=== PATIENT | female | born 1955 | race Caucasian/White ===

== ENCOUNTER 2024-03-07 21:56 | Inpatient (IN) | payer MEDICARE, OTHER, SELFPAY ==
[2024-03-07 18:18] VITALS: BP 126/77
[2024-03-07 19:00] LABS: Urine Albumin 2+ (Neg - Trace); Urine Bilirubin Negative (Negative); Urine Character Slightly Cloudy (Clear); Urine Color Yellow; Urine Glucose Negative (Negative); Urine Ketone 3+ (Negative); Urine Leukocyte Negative (Negative); Urine Nitrite Negative (Negative); Urine Occult Blood 3+ (Negative); Urine Specific Gravity 1.025 (<1.030); Urine Urobilinogen Negative (Neg - 1+)
[2024-03-07 19:03] LABS: % Basophils 0.3 % (0-2); % Immature Granulocytes 1.1 % (0-0.5); % Lymphocytes 7.4 % (20.5-51.1); % Monocytes 3.4 % (1.7-9.3); % Neutrophils 87.8 % (42.2-75.2); Absolute Immature Granulocytes 0.2 10^3/uL (0-0.05); Absolute Lymphocytes 1.1 10^3/uL (1.2-3.4); Absolute Monocytes 0.5 10^3/uL (0.1-0.6); Absolute Neutrophils 13.4 10^3/uL (1.4-6.5); Hematocrit 35.1 % (37.0-47.0); Hemoglobin 12.6 g/dL (12.0-16.0); Mean Corp Hgb Conc. 35.9 g/dL (33.0-37.0); Mean Corpuscular Hgb 30.3 pg (27.0-31.0); Mean Corpuscular Volume 84.4 fL (81.0-99.0); Mean Platelet Volume 9.3 fL (7.4-10.4); Nucleated Red Blood Cells % 0 %; Platelet Count 264 10^3/uL (130-400); Red Blood Cell Count 4.16 10^6/uL (4.20-5.40); Red Cell Dist. Width 11.8 % (11.5-14.5); White Blood Cell Count 15.3 10^3/uL (4.8-10.8)
[2024-03-07 19:11] LABS: Lactic Acid 1.1 mmol/L (0.7-2.0)
[2024-03-07 19:12] LABS: ALT (SGPT) 17 U/L (0-35); AST (SGOT) 21 U/L (14-36); Albumin 4.2 g/dl (3.5-5.0); Alkaline Phosphatase 81 U/L (38-126); Blood Urea Nitrogen 7 mg/dl (7-17); Calcium 8.9 mg/dl (8.4-10.2); Carbon Dioxide 25 mmol/L (22-30); Chloride 91 mmol/L (98-107); Glucose 135 mg/dl (70-99); Potassium 3.8 mmol/L (3.5-5.1); Sodium 127 mmol/L (135-145); Total Bilirubin 0.6 mg/dl (0.2-1.3); eGFR > 60.00
[2024-03-07 19:16] LABS: Urine Bacteria Few (Negative); Urine Red Blood Cell 21-25 /HPF (0-2)
[2024-03-07] MEDS: NSS 1000 IV ×2 (19:43→23:51)
[2024-03-07] MEDS: ZOFRAN 4 MG IV (19:43)
[2024-03-07] MEDS: TORADOL 15 MG IV (19:43)
[2024-03-07 20:50] VITALS: BP 111/59
[2024-03-07 21:00] VITALS: BP 105/57
--- NOTE | 2024-03-07 21:05 | ED.GENMED ---
History of Present Illness
General
Chief Complaint: Flank Pain
Source: patient
Exam Limitations: none
Time Seen by Provider: 03/07/24 18:44
Nursing documentation reviewed up to this point in time: agreed with
History of Present Illness
History of Present Illness:
68-year-old female presenting to the emergency department today with concerns of right sided sharp discomfort today and also symptoms of potential UTI over the past week or so. On arrival here febrile tachycardic.
Past History
Past History
ED Past Medical History: None
ED Past Surgical History: None
Review of Systems
Review of Systems
Allergies reviewed?: Yes
All Other Systems: ROS reviewed and negative except as documented in HPI and ROS
Phy Exam
Physical Exam
Physical Exam:
GENERAL: Alert , in no apparent distress
EYE: pupils equal and reactive
NECK: Supple, no significant adenopathy.
ENT: o/p clr, mmm.
CARDIAC: Regular rate and rhythm .
LUNGS: Clear breath sounds bilaterally, no acute respiratory distress, no wheezes/rales/rhonchi
ABDOMEN: Soft, without focal tenderness, no r/g, no cvat
NEUROLOGICAL: Alert and oriented, no focal neuro deficits
SKIN: Warm and dry, skin intact.
MUSCULOSKELETAL: No edema, well perfused.
PSYCH: Normal and appropriate interaction.
Course
Orders/Labs/Results
Orders:
Orders
03/07/24 18:28
Complete Blood Count/With Diff Urgent
Comprehensive Metabolic Panel Urgent
Lactic Acid Urgent
03/07/24 18:31
Urinalysis Reflex To Culture Urgent
Date Specimen was Collected: 03/07/24
Time Specimen was Collected: 18:21
Urine Microscopic Reflex Cult Urgent
Urine Culture Urgent
MICHAEL Source: U
Specimen Description:
Date Specimen was Collected: 03/07/24
Time Specimen was Collected: 18:21
03/07/24 19:32
CT Abd/pel Without Iv Or Oral Urgent
Comment:
Reason For Exam: right flank pain uti
0.9% Sodium Chloride 1000 ml [Nss] 1,000 ml IV BOLUS
Ketorolac [Toradol] 15 mg IV NOW STA
Ondansetron Injectable [Zofran] 4 mg IV NOW STA
03/07/24 21:05
CefTRIAXone [Rocephin] 2,000 mg IV NOW STA
Abnormal Lab Results
03/07/24 03/07/24
18:28 18:31
WBC 15.3 H 10^3/uL
(4.8-10.8)
RBC 4.16 L 10^6/uL
(4.20-5.40)
Hct 35.1 L %
(37.0-47.0)
Abs Immat Gran (auto) 0.2 H 10^3/uL
(0-0.05)
Absolute Neuts (auto) 13.4 H 10^3/uL
(1.4-6.5)
Absolute Lymphs (auto) 1.1 L 10^3/uL
(1.2-3.4)
Immature Gran % 1.1 H %
(0-0.5)
Neutrophils % 87.8 H %
(42.2-75.2)
Lymphocytes % 7.4 L %
(20.5-51.1)
Sodium 127 L mmol/L
(135-145)
Chloride 91 L mmol/L
(98-107)
Creatinine 0.5 L mg/dL
(0.6-1.0)
Glucose 135 H mg/dl
(70-99)
Urine Ketones 3+ A
(Negative)
Ur Occult Blood Reflex 3+ A
(Negative)
Urine RBC 21-25 A /HPF
(0-2)
Urine WBC (Reflex) 11-15 A /HPF
(0-5)
Urine Bacteria (Reflex) Few A
(Negative)
Urine Albumin (Reflex) 2+ A
(Neg - Trace)
03/07/24 18:28
03/07/24 18:28
Vital Signs
Initial and Last Documented VS:
Initial Vital Signs
Temp Pulse Resp BP Pulse Ox
101.1 F H 117 18 126/77 98
03/07/24 18:18 03/07/24 18:18 03/07/24 18:18 03/07/24 18:18 03/07/24 18:18
Last Documented Vital Signs
Temp Pulse Resp BP Pulse Ox
98.7 F 117 16 126/77 95
03/07/24 20:00 03/07/24 18:18 03/07/24 20:00 03/07/24 18:18 03/07/24 20:45
MDM/Problems Addressed
MDM/Problems Addressed:
68-year-old female presenting to the emergency department today with concerns of sharp pain to the right flank. Worsened today intermittently over few days. Has had symptoms of UTI over the past week or so has been taking Macrobid without relief.
Tachycardic and febrile on arrival. This improved after receiving Toradol. Patient now very comfortable after medication. Does a white count with left shift urinalysis potentially consistent with infection also hyponatremic. Case discussed with
urology would like to place a stent with concerns for infected stone. Started on IV antibiotics otherwise admitted.
*Critical Care Note
Total Time (30-74mins, 75-104mins- exclusive of procedures): Not Applicable
ED Attending Note
-
Portions of this chart may have been created with voice recognition software.� Occasional wrong word or��sound alike� substitutions may have occurred due to the inherent limitations of voice recognition software.
Discharge Plan
Departure
Patient Disposition: Admit
Date of Disposition: 03/07/24
Time of Disposition: 21:10
Admit to: Med/Surg
Admit to doctor: Miguel A
Presentation/result/management discussed w/ accepting MD/DO: Hospitalist
Patient with high blood pressure during this ER visit?: No
Condition: Fair
Covid-19: Not Applicable
Discharge Problem:
Ureteral calculus, right, Urinary tract infection, Acute hyponatremia
Prescriptions:
No Action
cephalexin 500 mg capsule
500 mg PO BID Qty: 14 0RF
hydrocodone-acetaminophen 5-325 mg tablet
1 tab PO Q4H PRN (Reason: pain) Qty: 14 0RF
Referrals:
Corrina Anaya CRNP [Family Provider] -
Interventions
Interventions:
*Risk Screen - Suicide Last Done: 03/07/24 18:18
*General Assessment Last Done: 03/07/24 18:46
*Neglect/Abuse Screening Last Done: 03/07/24 18:18
ED- Fall Risk Assessment Last Done: 03/07/24 18:46
YY-Mtrlex-Aqkloslvhx Assessment Last Done: 03/07/24 18:46
ED-Female Genitourinary Assessment Last Done: 03/07/24 18:46
Discharge Date and Time
Print Language: WELSH
--- NOTE | 2024-03-07 21:11 | HPS.HSE ---
Addendum entered and electronically signed by Darnell Grady DO 03/07/24 22:18:
Patient seen and examined independently. Agree with findings and plan as set forth by ERINN Tovar.
Patient is a 68y F with PMH significant for kidney stones who presents to ED complaining of R flank pain, dysuria and frequency. Had initial LEFT flank pain about 2 weeks ago which resolved. Current symptoms started last PM. Prior history of
kidney stones / previous ESWL. No prior cysto / stent procedures. No other chronic health issues.
Ass:
Right Ureterolithiasis
UTI secondary to the above
Sepsis secondary to the above
Hyponatremia
Plan:
Admit for further evaluation and treatment.
Being taken to the OR this evening for cysto / stent placement.
IV abx, IVFs, tamsulosin, etc.
Adjust abx as needed based on culture data.
Follow for clinical improvement.
Follow for improvement in Na levels with IVFs and pain control.
Original Note:
Family Physician
-
Family Physician: Corrina Anaya
Chief Complaint
-
right flank pain
History of Present Illness
68-year-old female with PMH for Kidney stones presenting to the emergency department today with concerns of right sided sharp flank pain since last night. two week ago, she noticed left flank pain, which resolved over night. patient stated burning
with urination, dysuria an frequency since Saturday. she was started on Macrobid on Saturday. she felt fine the first day. the symptoms persisted from the second day on abx. last night she started having right flank pain, associated with nausea and
vomiting. denied diarrhea. denied fever, she was having GREEN. denied fever, chills, congestion, cough.
positive UA. CT abdomen pelvis with Punctate 2 mm calculus at the right ureterovesical junction with associated mild right hydroureteronephrosis.patient received IV ceftriaxone, Toradol, Zofran and normal Saline in ER. admitting for further
management.
Medical History
Past Medical History
Past Medical History: Reports None and Other
Additional Past Medical History:
TBI
Past Surgical History: Reports Other
Additional Past Surgical History:
foot surgery
bunionectomy
back surgery
Social History
Tobacco: Former Smoker
Alcohol: Occasional
Drug: None
Living: With Family
Family History
Family History: Not pertinent
Allergies / Home Medications
Allergies reflects when Allergies were last updated in [facility].
Home Medications with original date entered in [facility]
Allergy/Medication List:
Allergies
Allergy/AdvReac Type Severity Reaction Status Date / Time
No Known Allergies Allergy Verified 03/07/24 18:21
Home Medications
cephalexin 500 mg capsule 500 mg PO BID #14 caps 05/16/22
hydrocodone 5 mg-acetaminophen 325 mg tablet 1 tab PO Q4H PRN pain #14 tabs 05/16/22
Review of Systems
-
Constitutional: Reports No Symptoms
EENT: Reports No Symptoms
Respiratory: Reports No Symptoms
Cardiac: Reports No Symptoms
Abdomen/GI: Reports No Symptoms
: Reports Dysuria, Frequency, Flank Pain and Urgency
Musculoskeletal: Reports No Symptoms
Skin: Reports No Symptoms
Neurological: Reports No Symptoms
Endocrine: Reports No Symptoms
Hematologic/Lymphatic: Reports No Symptoms
Psych: Reports No Symptoms
Physical Exam
Vital Signs
Vital Signs
Temp Pulse Resp BP Pulse Ox
98.7 F 117 16 126/77 95
03/07/24 20:00 03/07/24 18:18 03/07/24 20:00 03/07/24 18:18 03/07/24 20:45
Physical Exam
General: Well Developed, Well Nourished and No Apparent Distress
HEENT: NormoCephalic, Moist mucous membranes and Atraumatic
Respiratory: Clear
Cardiac: S1/S2 and Regular Rhythm; No Murmur or Rub
GI: Soft, Non Tender, Non Distended and Normal Bowel Sounds; No Organomegaly
Rectal: Deferred by Provider
Musculoskeletal: No Clubbing, No Cyanosis and No Edema
Skin: No Rash
Neuro: AO x 3 and Nonfocal/grossly intact
Psych: Calm
Laboratory Results
-
03/07/24 18:28
03/07/24 18:
Laboratory Results
Lactic Acid 1.1 mmol/L (0.7-2.0) 03/07/24 18:
Total Bilirubin 0.6 mg/dl (0.2-1.3) 03/07/24 18:
AST 21 U/L (14-36) 03/07/24 18:
ALT 17 U/L (0-35) 03/07/24 18:
Alkaline Phosphatase 81 U/L (38-126) 03/07/24 18:28
Data Reviewed
-
CT Scan: Report Reviewed by me
Lab Data: Labs Reviewed by me
Impression/Plan
-
#sepsis secondary to right calculus at the right ureterovesical junction associated with hydroureteronephrosis.
-sepsis as evident by wbc 15.3,tachycardia
-CT abdomen pelvis with Punctate 2 mm calculus at the right ureterovesical junction with associated mild right hydroureteronephrosis.
-ceftriaxone continued
-oxy, Dilaudid prn for pain
-will keep patient NPO
-fluids continued for hydration
-strain urine
#hyponatremia likely hypovolemic
-na 127
-fluids continued
-monitor BMP in am
#DVT prophylaxis
-scd
#CODE status
-full code
[2024-03-07] MEDS: ROCEPHIN 2000 MG IV (21:45)
--- NOTE | 2024-03-07 22:10 | CONS.URO ---
Consultation
-
Performing Provider: Peffer
Reason for Consultation: sepsis, R ureteral stone
Medical History
History of Present Illness
68F with remote history of stones and kidney stone procedures, none for many years
History of renal abscesses in the past
Had UTI symptoms earlier this week and was put on antibiotic
Symptoms did not improve and she developed worsening pain and fever, febrile on admission to [facility]
CT showed 2mm R distal ureteral stone with mild hydronephrosis, L renal simple cyst
Leukocytosis on labs
Past Medical History
Past Medical History: Other (Kidney stones)
Past Surgical History: Urological (lithotripsy) and Other (foot surgery bunionectomy back surgery)
Social History
Tobacco: Former Smoker
Alcohol: None
Drug: None
Family History
Family History: Reviewed & Not Pertinent
Allergies/Home Medications
Allergies
Allergy/AdvReac Type Severity Reaction Status Date / Time
No Known Allergies Allergy Verified 03/07/24 18:21
Physical Exam
Vital Signs
Vital Signs
Temp Pulse Resp BP Pulse Ox
98.7 F 117 16 105/57 95
03/07/24 20:00 03/07/24 18:18 03/07/24 20:00 03/07/24 21:00 03/07/24 21:30
Lab / Testing Results
Laboratory Results
03/07/24 18:28
03/07/24 18:28
Physical Exam
General: Well Developed, Well Nourished and Pain
Respiratory: Clear and Non Labored Respirations
GI: Soft and Non Tender
Neuro: AO x 3
Psych: Calm and Intact Judgement
Assessment / Plan
-
68F, remote history of kidney stones and stone procedures with sepsis and 2mm R distal ureteral stone
Febrile despite several days of antibiotics for suspected UTI
- IV antibiotics and IVF
- OR for cystoscopy, R ureteral stent. Possible R ureteroscopy and stone removal if it does not impede prompt renal decompression
Data Reviewed
-
CT Scan: Image personally visualized and interpreted
Lab Data: Labs Reviewed
--- NOTE | 2024-03-07 22:49 | W.IMMPOSTOP ---
Surgical Immed Post Op Note
-
Primary Surgeon: Peffer
Assisting Surgeon: -
Pre-op Diagnosis: Sepsis, R ureteral stone
Post-op Diagnosis: same
Procedure Performed: Cystoscopy, R ureteroscopy, R ureteral stent placement
Anesthesia Type: general
Specimen / Cultures: none
Estimated Blood Loss: none
Complications: none
Operative Findings: no stone encountered
purulent urine within upper tract
cystitis in bladder
stent on string in good position
[2024-03-07 23:30] VITALS: BP 101/57; BP 105/57
[2024-03-07 23:45] VITALS: BP 105/54
[2024-03-08] VITALS (9 sets, daily range): BP systolic 99–116; BP diastolic 46–70; BMI 21.3
--- NOTE | 2024-03-08 02:40 | PTCARENOTE ---
Pt received from PACU in bed. AAOx3, drowsy but arousable to voice. Telemetry = SR. Oriented to surroundings and plan of care discussed. Admission and assessment completed. Assist x1 --> BR, voided 450 mL bloody/cloudy urine. Urine strained,
no particles observed. #20 LAC w/NSS at 80 mL/hr, no-no placed. Call sanchez within reach.
[2024-03-08 06:21] LABS: Hematocrit 35.4 % (37.0-47.0); Hemoglobin 12.3 g/dL (12.0-16.0); Mean Corp Hgb Conc. 34.7 g/dL (33.0-37.0); Mean Corpuscular Hgb 30.2 pg (27.0-31.0); Mean Platelet Volume 9.5 fL (7.4-10.4); Platelet Count 255 10^3/uL (130-400); Red Blood Cell Count 4.07 10^6/uL (4.20-5.40); Red Cell Dist. Width 11.8 % (11.5-14.5); White Blood Cell Count 16.1 10^3/uL (4.8-10.8)
[2024-03-08 06:50] LABS: Blood Urea Nitrogen 8 mg/dl (7-17); Calcium 8.4 mg/dl (8.4-10.2); Carbon Dioxide 24 mmol/L (22-30); Chloride 104 mmol/L (98-107); Estimated Creatinine Clearance 74 ml/min; Glucose 140 mg/dl (70-99); Potassium 4.3 mmol/L (3.5-5.1); Sodium 138 mmol/L (135-145); eGFR > 60.00
--- NOTE | 2024-03-08 07:19 | W.PN.HOSP.TC ---
Today's Communication/Plan
-
see plan
Assessment / Plan
Assessment / Plan
Gen: NAD, AAOx3.
Eyes: EOMI, PERRLA, no scleral icterus.
Neck: supple.
CV: RRR, +S1/S2, no m/r/g.
Resp: CTAB, no rales, wheezes, or rhonchi.
Abd: +BS, soft, NT, ND
Skin: No rashes.
Neuro: CN 2-12 intact, non-focal.
Psych: Normal mood and affect.
CT A/P: Punctate 2 mm calculus at the right ureterovesical junction with associated mild right hydroureteronephrosis.
Sepsis due to acute UTI due to R ureterolithiasis:
-s/p cystoscopy, R ureteroscopy, R ureteral stent placement on admission
-cont Rocephin/IVFs
-follow UCx
Hyponatremia, resolved
FULL/Lovenox
Anticipated Discharge: Within 24 hours
Subjective/Interval History
-
Date of Service: March 08, 2024
Right flank pain improved but has not resolved.
Objective Data
-
Labs:
Laboratory Results
03/08/24
05:53
WBC 16.1 H
Hgb 12.3
Hct 35.4 L
Plt Count 255
Sodium 138 D
Potassium 4.3
Chloride 104
Carbon Dioxide 24
BUN 8
Creatinine 0.5 L
Glucose 140 H
Calcium 8.4
Vital Signs:
Vital Signs
Temp Pulse Resp BP Pulse Ox
97.8 F 75 16 115/59 98
03/08/24 03:15 03/08/24 03:15 03/08/24 03:15 03/08/24 03:15 03/08/24 03:15
I&O
03/07/24 03/08/24 03/09/24
06:59 06:59 06:59
Intake Total 530 / 530
Output Total 1100 / 1100
Balance -570 / -570
[2024-03-08] MEDS: FLOMAX 0.4 MG PO (08:03)
[2024-03-08] MEDS: TYLENOL 650 MG PO ×2 (08:03→17:24)
[2024-03-08] MEDS: MIRALAX 17 GRAMS PO (08:11)
--- NOTE | 2024-03-08 11:06 | W.PN.URO.CBU ---
Today's Communication / Plan
-
Continue antibiotics
Cultures pending
Assessment / Plan
-
68F, remote history of kidney stones and stone procedures with sepsis and 2mm R distal ureteral stone
Febrile despite several days of antibiotics for suspected UTI
s/p OR 03/07 for R ureteroscopy showing no stone present (likely passed), ureteral stent placement
- Continue abx pending cultures
- Stent on string placed due to minimal ureteral edema, plan for removal on or Sat prior to her mother's on
- Outpatient follow up for stone prevention discussion
Diagnosis
-
Date of Service: March 08, 2024
-
Patient Diagnosis:
Sepsis
R ureteral stone
Post Op Day: s/p R ureteroscopy, R ureteral stent placement 03/07
Subjective
-
feeling well
some pain with voiding from stent
Objective
-
Vital Signs
Temp Pulse Resp BP Pulse Ox
98.1 F 90 18 114/62 98
03/08/24 07:19 03/08/24 07:19 03/08/24 07:19 03/08/24 07:19 03/08/24 07:19
Intake and Output
03/07/24 03/08/24 03/09/24
06:59 06:59 06:59
Intake Total 530 / 530
Output Total 1100 / 1100
Balance -570 / -570
Intake:
IV fluids (Total) 530 / 530
nss 50 / 50
Output:
Urine, Voided 1100 / 1100
Laboratory Results
03/08/24 05:53
03/08/24 05:53
Physical Exam
-
General - well developed, well nourished, no acute distress
Chest - clear
Abdomen - soft, non-tender
--- NOTE | 2024-03-08 11:19 | CM ---
Reviewed the chart notes and spoke with the patient at the bedside. The patient is residing in a friends four story home with two steps to enter. The patient reports no VN/SNF/DME. The patient confirmed her pharmacy of choice while in this area
is the [facility]. CM continues to be available to patient/family and is monitoring medical plan for needs at discharge.
Plan: Discharge to home when medically stable. No needs anticipated at this time.
[2024-03-08] MEDS: NSS 1000 IV (12:58)
[2024-03-08] MEDS: LOVENOX 40 MG SC (17:17)
--- NOTE | 2024-03-08 17:29 | PTCARENOTE ---
Pt c/o increasing R flank pain and urethral burning w/ urination. Also started having aches/chills/GREEN. Temp re-checked and is 99.5. Pt resistant to taking medication but agreeable to taking tylenol at this time. Urology made aware via TT.
[2024-03-08] MEDS: TORADOL 15 MG IV (19:57)
[2024-03-08] MEDS: ZOFRAN 4 MG IV (19:57)
[2024-03-08] MEDS: ROCEPHIN 1000 MG IV (21:08)
[2024-03-08] MEDS: STERILE WATER FOR INJECTION 10 ML IV (21:08)
[2024-03-08] MEDS: Pyridium 200 MG PO (21:09)
[2024-03-09] MEDS: NSS 1000 IV (00:51)
[2024-03-09] MEDS: TORADOL 15 MG IV ×3 (04:32→17:13)
[2024-03-09] MEDS: Pyridium 200 MG PO ×4 (04:32→23:39)
[2024-03-09 06:42] LABS: Hematocrit 32.2 % (37.0-47.0); Hemoglobin 10.9 g/dL (12.0-16.0); Mean Corp Hgb Conc. 33.9 g/dL (33.0-37.0); Mean Corpuscular Hgb 29.9 pg (27.0-31.0); Mean Corpuscular Volume 88.5 fL (81.0-99.0); Platelet Count 234 10^3/uL (130-400); Red Blood Cell Count 3.64 10^6/uL (4.20-5.40); White Blood Cell Count 9.9 10^3/uL (4.8-10.8)
[2024-03-09 06:45] LABS: COVID-19 Antigen Negative (Negative)
[2024-03-09 07:04] LABS: Blood Urea Nitrogen 6 mg/dl (7-17); Calcium 7.8 mg/dl (8.4-10.2); Carbon Dioxide 27 mmol/L (22-30); Chloride 103 mmol/L (98-107); Estimated Creatinine Clearance 74 ml/min; Glucose 102 mg/dl (70-99); Potassium 3.8 mmol/L (3.5-5.1); Sodium 137 mmol/L (135-145); eGFR > 60.00
--- NOTE | 2024-03-09 07:06 | PTCARENOTE ---
Pt with c/o of overall not feeling well. Intermittent headaches, chest heaviness, sore throat. Verbalizes concern for covid. [employer]IE[employer] MAN covering house contacted, electronic orders received to swab for influenza and covid. Swabs sent and resulted,
negative.
[2024-03-09] MEDS: FLOMAX 0.4 MG PO (07:37)
[2024-03-09] MEDS: TYLENOL 650 MG PO ×2 (07:37→15:43)
--- NOTE | 2024-03-09 08:25 | W.PN.URO.CBU ---
Today's Communication / Plan
-
Continue antibiotics
Will plan for stent on string removal tomorrow AM
Assessment / Plan
-
68F, remote history of kidney stones and stone procedures with sepsis and 2mm R distal ureteral stone
Febrile despite several days of antibiotics for suspected UTI
s/p OR 03/07 for R ureteroscopy showing no stone present (likely passed), ureteral stent placement
- Continue abx pending cultures
- Stent on string placed due to minimal ureteral edema, plan for removal on or Sat prior to her mother's on
- Outpatient follow up for stone prevention discussion
Diagnosis
-
Date of Service: March 09, 2024
-
Patient Diagnosis:
Sepsis
R ureteral stone
Post Op Day: s/p R ureteroscopy, R ureteral stent placement 03/07
Subjective
-
feeling chills/fevers yesterday
fatigued today
Objective
-
Vital Signs
Temp Pulse Resp BP Pulse Ox
98.8 F 91 18 105/60 95
03/08/24 23:25 03/08/24 23:25 03/08/24 23:25 03/08/24 23:25 03/08/24 23:25
Intake and Output
03/08/24 03/09/24 03/10/24
06:59 06:59 06:59
Intake Total 530 / 530 1200 / 1200
Output Total 1100 / 1100 1700 / 1700
Balance -570 / -570 -500 / -500
Intake:
Oral fluids 1200 / 1200
IV fluids (Total) 530 / 530
nss 50 / 50
Output:
Urine, Voided 1100 / 1100 1700 / 1700
Other:
Number of approximated SMALL 1
amounts of urine
Number of approximated MODERATE 4
amounts of urine
Laboratory Results
03/09/24 05:09
03/09/24 05:09
Physical Exam
-
General - well developed, well nourished, no acute distress
Chest - clear
Abdomen - soft, non-tender
[2024-03-09 09:00] VITALS: BP 103/54
[2024-03-09 15:08] VITALS: BP 112/64
--- NOTE | 2024-03-09 15:54 | CM ---
Chart reviewed. Met with pt
For procedure tomorrow
Plan - anticipate home no needs when medically ready
--- NOTE | 2024-03-09 16:46 | W.PN.HOSP.TC ---
Today's Communication/Plan
-
Discharge plans per Urology
Assessment / Plan
Assessment / Plan
68-year-old female with right flank pain
CT A/P: Punctate 2 mm calculus at the right ureterovesical junction with associated mild right hydroureteronephrosis.
CVS: S1-S2 normal
Chest: CTA B/L
Abdomen: Soft, NT / Bowel sounds present
Extremities: No edema, normal pulses
#Sepsis due to acute UTI due to R ureterolithiasis:
-s/p cystoscopy, R ureteroscopy, R ureteral stent placement on admission-no stone-probably passed
-cont Rocephin with leukocytosis
-follow UCx-sparse growth
-Plan for stent on string removal in the morning
-Leukocytosis better
-Pyridium for Dysuria
#Hyponatremia, resolved
# Migraines
# Traumatic brain injury
# Sleep apnea-uses mouthguard
# Hearing impairment
# PTSD
#FULL
#DVT Prophylaxis- SC Lovenox
D/W RN
Anticipated Discharge: Within 24 hours
Subjective/Interval History
-
Date of Service: March 09, 2024
Objective Data
-
Labs:
Laboratory Results
03/09/24
05:09
WBC 9.9
Hgb 10.9 L
Hct 32.2 L
Plt Count 234
Sodium 137
Potassium 3.8
Chloride 103
Carbon Dioxide 27
BUN 6 L
Creatinine 0.5 L
Glucose 102 H
Calcium 7.8 L
Vital Signs:
Vital Signs
Temp Pulse Resp BP Pulse Ox
99.6 F 96 16 112/64 98
03/09/24 15:08 03/09/24 15:08 03/09/24 15:08 03/09/24 15:08 03/09/24 15:08
I&O
03/08/24 03/09/24 03/10/24
06:59 06:59 06:59
Intake Total 530 / 530 1200 / 1200
Output Total 1100 / 1100 1700 / 1700 725 / 725
Balance -570 / -570 -500 / -500 -725 / -725
[2024-03-09] MEDS: LOVENOX 40 MG SC (17:13)
--- NOTE | 2024-03-09 18:25 | PTCARENOTE ---
Pt w/ intermittent fevers/chills throughout the day relieved w/ tylenol/toradol. Also continues to have dysuria relived by pyridium. Pt alert/oriented/pleasant. Motivated to have stent removed tomorrow morning and hopefully be discharged.
[2024-03-09] MEDS: ROCEPHIN 1000 MG IV (21:24)
[2024-03-09] MEDS: STERILE WATER FOR INJECTION 10 ML IV (21:24)
[2024-03-09 23:11] VITALS: BP 93/56
[2024-03-10] VITALS (8 sets, daily range): BP systolic 98–134; BP diastolic 60–88
[2024-03-10] MEDS: Pyridium 200 MG PO (05:56)
[2024-03-10 07:23] LABS: Hematocrit 33.9 % (37.0-47.0); Hemoglobin 11.7 g/dL (12.0-16.0); Mean Corp Hgb Conc. 34.5 g/dL (33.0-37.0); Mean Corpuscular Hgb 30.4 pg (27.0-31.0); Mean Corpuscular Volume 88.1 fL (81.0-99.0); Platelet Count 243 10^3/uL (130-400); Red Blood Cell Count 3.85 10^6/uL (4.20-5.40); Red Cell Dist. Width 12.2 % (11.5-14.5); White Blood Cell Count 9.6 10^3/uL (4.8-10.8)
[2024-03-10] MEDS: FLOMAX 0.4 MG PO (07:37)
[2024-03-10 07:40] LABS: Blood Urea Nitrogen 5 mg/dl (7-17); Calcium 7.7 mg/dl (8.4-10.2); Carbon Dioxide 26 mmol/L (22-30); Chloride 102 mmol/L (98-107); Estimated Creatinine Clearance 74 ml/min; Glucose 88 mg/dl (70-99); Sodium 138 mmol/L (135-145); eGFR > 60.00
[2024-03-10] MEDS: TYLENOL 650 MG PO ×2 (07:47→20:39)
[2024-03-10] MEDS: TORADOL 15 MG IV ×2 (07:47→17:32)
[2024-03-10] MEDS: MIRALAX 17 GRAMS PO (07:47)
[2024-03-10 08:31] LABS: Potassium 3.7 mmol/L (3.5-5.1)
--- NOTE | 2024-03-10 09:01 | W.PN.URO.CBU ---
Today's Communication / Plan
-
CT today
stent removed
Continue antibiotic
Assessment / Plan
-
68F, remote history of kidney stones and stone procedures with sepsis and 2mm R distal ureteral stone
Febrile despite several days of antibiotics for suspected UTI
s/p OR 03/07 for R ureteroscopy showing no stone present (likely passed), ureteral stent placement
- Continue abx pending cultures - scant growth
- Given persistent fever today will order CT A/P w/wo to evaluate for renal abscess - pt has prior history of renal abscess
- Stent on string placed due to minimal ureteral edema, removed this AM 03/10
- Outpatient follow up for stone prevention discussion
Diagnosis
-
Date of Service: March 10, 2024
-
Patient Diagnosis:
Sepsis
R ureteral stone
Post Op Day: s/p R ureteroscopy, R ureteral stent placement 03/07
Subjective
-
feeling better today
still spiking fever this AM
Objective
-
Vital Signs
Temp Pulse Resp BP Pulse Ox
98.2 F 89 18 93/56 94
03/09/24 23:11 03/09/24 23:11 03/09/24 23:11 03/09/24 23:11 03/09/24 23:11
Intake and Output
03/09/24 03/10/24 03/11/24
06:59 06:59 06:59
Intake Total 1200 / 1200 1520 / 1520
Output Total 1700 / 1700 2149 / 2149
Balance -500 / -500 -630 / -630
Intake:
Oral fluids 1200 / 1200 1520 / 1520
Output:
Urine, Voided 1700 / 1700 2149 / 2149
Other:
Number of approximated SMALL 1
amounts of urine
Number of approximated MODERATE 4
amounts of urine
Laboratory Results
03/10/24 05:05
03/10/24 05:05
Physical Exam
-
General - well developed, well nourished, no acute distress
Chest - clear bilaterally
Abdomen - soft, non-tender
Genitalia - ureteral stent on string
--- NOTE | 2024-03-10 10:21 | CM ---
Patient not available in room as she is having CT A/P
Continues with antibiotic, stent removed
CM to follow - currently no anticipated needs
PLAN: anticipate home no needs when medically ready
--- NOTE | 2024-03-10 12:08 | W.PN.UPDATE ---
Update Note
Progress Note Update
CT shows R renal abscess
Discussed with patient
Consulted IR for percutaneous drainage
NPO
Abscess culture ordered
--- NOTE | 2024-03-10 12:48 | W.PN.HOSP.TC ---
Today's Communication/Plan
-
Change AB to Zosyn
-Blood CX prior to Starting Zosyn.
-ID eval
-IR Consult for PC drainage with abscess Cx
-Check COVID and FLU
Assessment / Plan
Assessment / Plan
68-year-old female with right flank pain
CT A/P: Punctate 2 mm calculus at the right ureterovesical junction with associated mild right hydroureteronephrosis.
CVS: S1-S2 normal
Chest: CTA B/L
Abdomen: Soft, NT / Bowel sounds present
Extremities: No edema, normal pulses
CT A/P-There is a 3.6 cm complex right renal mass with 8 mm enhancing wall and low-density center which measures higher than cyst attenuation. This mass is most consistent with abscess. Complex cyst is included in the differential diagnosis
#Sepsis due to acute UTI due to R ureterolithiasis:
-s/p cystoscopy, R ureteroscopy, R ureteral stent placement on admission-no stone-probably passed
-On going fevers
-Repeat Ct with 3 cm collection
-Change AB to Zosyn
-Blood CX prior to Starting Zosyn.
-follow UCx-sparse growth
-Leukocytosis better
-Pyridium for Dysuria
-Stent with string removed today
-ID eval
-IR Consult for PC drainage with abscess Cx
Also check COVID and INfluenza
Cough- Mucinex and Tsslon
#Hyponatremia, resolved
# Migraines
# Traumatic brain injury
# Sleep apnea-uses mouthguard
# Hearing impairment
# PTSD
#FULL
#DVT Prophylaxis- Hold SC Lovenox
D/W RN
Anticipated Discharge: > 48 hours
Subjective/Interval History
-
Date of Service: March 10, 2024
Objective Data
-
Labs:
Laboratory Results
03/10/24
05:05
WBC 9.6
Hgb 11.7 L
Hct 33.9 L
Plt Count 243
Sodium 138
Potassium 3.7
Chloride 102
Carbon Dioxide 26
BUN 5 L
Creatinine 0.5 L
Glucose 88
Calcium 7.7 L
Vital Signs:
Vital Signs
Temp Pulse Resp BP Pulse Ox
101 F H 122 20 134/78 96
03/10/24 07:40 03/10/24 07:40 03/10/24 07:40 03/10/24 07:40 03/10/24 07:40
I&O
03/09/24 03/10/24 03/11/24
06:59 06:59 06:59
Intake Total 1200 / 1200 1520 / 1520
Output Total 1700 / 1700 2150 / 2150
Balance -500 / -500 -630 / -630
[2024-03-10] MEDS: ZOSYN 50 IV ×2 (15:00→19:39)
[2024-03-10] MEDS: XANAX 0.5 MG PO (15:00)
[2024-03-10 15:16] LABS: INR 0.99; PT 13.4 Sec (11.4-14.6)
--- NOTE | 2024-03-10 15:43 | CON.ID ---
Consultation
-
Date/Time Consultation Requested: 03/10/2024 1247
Date/Time Consultation Performed: 03/10/2024 1530
Requesting Provider: Dr. Vyas
Performing Provider: Dr. Miller
Reason for Consultation: Right renal abscess
Chief Complaint / Past History
History of Present Illness
Eileen Gan is a 68-year-old female being evaluated at the request of Dr. Vyas in regards to a right renal abscess. History is obtained from chart review, along with patient interview.
The patient reports that she has a remote history of bilateral renal abscesses in the while she was in the that required drainage. In the interim she has had episodes of nephrolithiasis. She reports she was in her usual state of
health until approximately 2 weeks ago when she believes that she had a left renal stone as she was having pain in the left flank. Ultimately that discomfort resolved, only to develop pain on the right flank area which prompted her arrival at the
ER on 03/07.
In the ER, she was found to be febrile, and imaging revealed a 2 mm calculus at the right ureterovesicular junction with mild right hydroureteronephrosis. She was taken to the OR and a stent was placed. Over the past several days she has had
ongoing fevers, and today a repeat CT scan has revealed a suspected 3 cm right renal abscess. She is currently on her way to IR for drainage.
Past History
Additional Past Medical History:
TBI
Nephrolithiasis
Additional Past Surgical History:
Foot surgery
Back surgery
Lithotripsy
Allergy History:
No Known Allergies Allergy (Verified 03/07/24 18:21)
Medications Reviewed: Yes
Current Antibiotics:
Zosyn 3.375 g IV every 6 hours
Ceftriaxone - discontinued
Social History
Tobacco: Former Smoker
Alcohol: Occasional
Drug: None
Living: With Family
Employment: Retired
Family History
Family History: Not Pertinent
Review of Systems
Vital Signs
Temp Pulse Resp BP Pulse Ox
101 F H 122 20 134/78 96
03/10/24 07:40 03/10/24 07:40 03/10/24 07:40 03/10/24 07:40 03/10/24 07:40
Physical Exam
Physical Exam
Constitutional: No Acute Distress, Comfortable and Non-toxic
Eyes: No Conjunctival Hemorrhage and Sclera Anicteric
Oral: No Thrush and No Ulcers
Cardiovascular: Regular Rate and S1/S2; Negative S3/S4
Pulmonary: Clear; Negative Wheezes, Rales or Rhonchi
Gastrointestinal: Soft, Non Tender, Non Distended, No Rebound and No Guarding
Genito-Urinary: Negative Rutherford or CVA Tenderness
Extremities: Negative Edema, Cyanosis or Erythema
Skin: Warm and Dry; Negative Rash or Jaundice
Neurological: Awake and Alert
Psychological: Calm
.
Lab / Diagnostic Study Results
03/10/24 05:05
03/10/24 05:05
Abs Immat Gran (auto) 0.2 10^3/uL (0-0.05) H 03/07/24 18:28
Absolute Neuts (auto) 13.4 10^3/uL (1.4-6.5) H 03/07/24 18:28
Absolute Lymphs (auto) 1.1 10^3/uL (1.2-3.4) L 03/07/24 18:28
Absolute Monos (auto) 0.5 10^3/uL (0.1-0.6) 03/07/24 18:28
Absolute Basos (auto) 0.0 10^3/uL (0-0.2) 03/07/24 18:28
Immature Gran % 1.1 % (0-0.5) H 03/07/24 18:28
Neutrophils % 87.8 % (42.2-75.2) H 03/07/24 18:28
Lymphocytes % 7.4 % (20.5-51.1) L 03/07/24 18:
Monocytes % 3.4 % (1.7-9.3) 03/07/24 18:
Eosinophils % 0.0 % (0-6) 03/07/24 18:28
Basophils % 0.3 % (0-2) 03/07/24 18:
PT 13.4 Sec (11.4-14.6) 03/10/24 15:00
INR 0.99 03/10/24 15:00
Lactic Acid 1.1 mmol/L (0.7-2.0) 03/07/24 18:
Ur Squamous Epith Cells 11-15 /LPF (Few) 03/07/24 18:31
Microbiology Results
Micro:
03/10/24 12:31 Blood Culture - Pending
Blood/Venous
03/10/24 11:41 Blood Culture - Pending
Blood/Venous
03/07/24 18:31 Urine Culture - Final
Urine No Significant Growth
03/09/24 06:12 Influenza Types A & B (JEFRY) - Final
Nasal Swab Negative for Influenza A & B, NAAT
Negative results must be combined with clinical observations
and patient history.
Nucleic Acid Amplification test (NAAT)performed on the
[employer] platform.
Imaging:
03/10/2024 CT abdomen/pelvis with contrast: A 3.6 cm complex right renal mass with 8 mm enhancing wall and low-density center is seen, most consistent with abscess. Please see full dictation for additional detail.
03/07/2024 CT abdomen/pelvis: Evaluation is limited by lack of IV contrast. A punctate 2 mm calculus at the right ureterovesicular junction with associated mild right hydroureteronephrosis.
Assessment / Plan
Suspected right renal abscess
Complicated urinary tract infection
Nephrolithiasis
Fever
Leukocytosis
Recommendations:
Continue with empiric Zosyn for the present.
Patient currently to have aspiration/drainage of right renal collection. Please send cultures.
Follow white count and temperature curve.
Further recommendations as additional data is returned.
[2024-03-10] MEDS: MUCINEX 600 MG PO (19:39)
[2024-03-11] MEDS: TORADOL 15 MG IV (01:37)
[2024-03-11] MEDS: ZOSYN 50 IV ×4 (01:38→20:35)
[2024-03-11] MEDS: TESSALON PERLES 200 MG PO ×3 (01:40→21:01)
[2024-03-11 03:25] VITALS: BP 104/64
[2024-03-11 05:48] LABS: Hematocrit 31.8 % (37.0-47.0); Hemoglobin 10.8 g/dL (12.0-16.0); Mean Corpuscular Volume 88.3 fL (81.0-99.0); Mean Platelet Volume 9.5 fL (7.4-10.4); Platelet Count 226 10^3/uL (130-400); Red Cell Dist. Width 12.2 % (11.5-14.5); White Blood Cell Count 7.9 10^3/uL (4.8-10.8)
[2024-03-11 06:35] LABS: Blood Urea Nitrogen 6 mg/dl (7-17); Calcium 8.2 mg/dl (8.4-10.2); Carbon Dioxide 29 mmol/L (22-30); Chloride 101 mmol/L (98-107); Estimated Creatinine Clearance 74 ml/min; Glucose 92 mg/dl (70-99); Potassium 3.8 mmol/L (3.5-5.1); Sodium 138 mmol/L (135-145); eGFR > 60.00
[2024-03-11 07:50] VITALS: BP 133/79
--- NOTE | 2024-03-11 08:28 | W.PN.URO.CBU ---
Today's Communication / Plan
-
Continue antibiotic
Drain to bulb suction
Assessment / Plan
-
68F, remote history of kidney stones and stone procedures with sepsis and 2mm R distal ureteral stone
Febrile despite several days of antibiotics for suspected UTI
s/p OR 03/07 for R ureteroscopy showing no stone present (likely passed), ureteral stent placement
Stent removed atbedside 03/10
CT showed R renal abscess and now s/p IR drainage of purulent fluid 03/10
- Abscess drain to bulb suction
- Continue zosyn pending abscess cultures. Urine culture with no significant growth
- Possible drain study/removal prior to discharge depending on timing
Outpatient follow up for stone prevention discussion once stable for discharge
Diagnosis
-
Date of Service: March 11, 2024
-
Patient Diagnosis:
Sepsis
R ureteral stone
R renal abscess
Post Op Day: s/p R ureteroscopy, R ureteral stent placement 03/07
s/p IR drainage of R renal abscess 03/10
Subjective
-
chills this morning
Objective
-
Vital Signs
Temp Pulse Resp BP Pulse Ox
99.6 F 98 17 104/64 92
03/11/24 03:25 03/11/24 03:25 03/11/24 03:25 03/11/24 03:25 03/11/24 03:25
Intake and Output
03/10/24 03/11/24 03/12/24
06:59 06:59 06:59
Intake Total 1520 / 1520 580 / 580
Output Total 2149
Balance -630 / -630 580 / 580
Intake:
Oral fluids 1520 / 1520 480 / 480
IV piggybacks 100 / 100
Output:
Urine, Voided 2149
Other:
Number of approximated MODERATE 3 3
amounts of urine
Laboratory Results
03/11/24 04:58
03/11/24 04:58
Physical Exam
-
General - well developed, well nourished, no acute distress
Chest - clear bilaterally
Abdomen - soft, non-tender
Mild bloody drainage from drain site
Skin - warm & dry with no rash
[2024-03-11] MEDS: FLOMAX 0.4 MG PO (08:56)
[2024-03-11] MEDS: MUCINEX 600 MG PO ×2 (08:56→20:35)
[2024-03-11] MEDS: TYLENOL 650 MG PO ×3 (08:56→20:43)
--- NOTE | 2024-03-11 10:48 | W.PN.HOSP.TC ---
Today's Communication/Plan
-
Await fluid CX
CXR
Sputum cx
Assessment / Plan
Assessment / Plan
68-year-old female with right flank pain
CT A/P: Punctate 2 mm calculus at the right ureterovesical junction with associated mild right hydroureteronephrosis.
CVS: S1-S2 normal
Chest: Few rales right base
Abdomen: Soft, NT / Bowel sounds present
Extremities: No edema, normal pulses
CT A/P-There is a 3.6 cm complex right renal mass with 8 mm enhancing wall and low-density center which measures higher than cyst attenuation. This mass is most consistent with abscess. Complex cyst is included in the differential diagnosis
# Cough with rales- CXR
Continue IS and AB
Sputum CX
Mucinex and Tesslon
#Sepsis due to acute UTI due to R ureterolithiasis:
-s/p cystoscopy, R ureteroscopy, R ureteral stent placement on admission-no stone-probably passed
-Repeat Ct with 3 cm collection
-Changed AB to Zosyn
-Blood CX done prior to Starting Zosyn.
-follow UCx-sparse growth
-Leukocytosis better
-Pyridium for Dysuria
-Stent with string removed 03/10/24
-ID eval appreciated
-IR Consulted for PC drainage with abscess Cx- Drain placed
-CX with GNR- Await identification.
#Hyponatremia, resolved
# Migraines
# Traumatic brain injury
# Sleep apnea-uses mouthguard
# Hearing impairment
# PTSD
#FULL
#DVT Prophylaxis- SC Lovenox
D/W RN
Offered to talk to family. She said her brother was here yesterday.
She doesn't want me to talk to family.
Anticipated Discharge: 24 - 48 hours
Subjective/Interval History
-
Date of Service: March 11, 2024
Objective Data
-
Labs:
Laboratory Results
03/11/24
04:58
WBC 7.9
Hgb 10.8 L
Hct 31.8 L
Plt Count 226
Sodium 138
Potassium 3.8
Chloride 101
Carbon Dioxide 29
BUN 6 L
Creatinine 0.6
Glucose 92
Calcium 8.2 L
Vital Signs:
Vital Signs
Temp Pulse Resp BP Pulse Ox
99.7 F 101 16 133/79 98
03/11/24 07:50 03/11/24 07:50 03/11/24 07:50 03/11/24 07:50 03/11/24 07:50
I&O
03/10/24 03/11/24 03/12/24
06:59 06:59 06:59
Intake Total 1520 / 1520 580 / 580
Output Total 2150 / 2149
Balance -630 / -630 580 / 580
--- NOTE | 2024-03-11 12:06 | W.PN.ID1 ---
Date of Service
Date of Service: March 11, 2024
Today's Communication
Continue antibiotics. Await cultures.
Assessment / Plan
Suspected right renal abscess
Complicated urinary tract infection
Nephrolithiasis
Fever
Leukocytosis
Recommendations:
Continue with empiric Zosyn for the present.
Patient s/p aspiration/drainage of right renal collection. 8 cc of bloody purulent fluid recovered per report.
Follow white count and temperature curve.
Further recommendations as additional data is returned.
����������������������������������������������������������
Chief Complaint
-: UTI
Subjective / Review of Systems
Review of Systems: No Fever and No Chills
Vital Signs / Physical Exam
Vital Signs
Vital Signs
Temp Pulse Resp BP Pulse Ox
99.7 F 101 16 133/79 98
03/11/24 07:50 03/11/24 07:50 03/11/24 07:50 03/11/24 07:50 03/11/24 07:50
Physical Exam
Constitutional: No Acute Distress, Comfortable and Non-toxic
Eyes: Sclera Anicteric
Cardiovascular: S1/S2; Negative S3/S4
Pulmonary: Clear and Non Labored
Gastrointestinal: Soft, Non Tender and Non Distended
Genito-Urinary: Other (Right-sided BRAYDON to abscess. Bloody fluid in bulb.)
Neurological: Awake and Alert
Psychological: Calm
Objective Data
Lab Data
Lab Results
03/11/24 04:58
03/11/24 04:58
PT 13.4 Sec (11.4-14.6) 03/10/24 15:00
INR 0.99 03/10/24 15:00
Estimated Creat Clear 74 ml/min 03/11/24 04:58
Lactic Acid 1.1 mmol/L (0.7-2.0) 03/07/24 18:28
Total Bilirubin 0.6 mg/dl (0.2-1.3) 03/07/24 18:28
AST 21 U/L (14-36) 03/07/24 18:28
ALT 17 U/L (0-35) 03/07/24 18:28
Alkaline Phosphatase 81 U/L (38-126) 03/07/24 18:28
Most recent labs reviewed.
Micro Results:
03/10/24 16:51 Wound Culture - Pending
Abscess Gram Stain - few GNR's
03/10/24 12:31 Blood Culture - Pending
Blood/Venous
03/10/24 11:41 Blood Culture - Pending
Blood/Venous
03/07/24 18:31 Urine Culture - Final
Urine No Significant Growth
03/09/24 06:12 Influenza Types A & B (JEFRY) - Final
Nasal Swab Negative for Influenza A & B, NAAT
Negative results must be combined with clinical observations
and patient history.
Nucleic Acid Amplification test (NAAT)performed on the
[employer] platform.
Imaging:
03/10/2024 CT abdomen/pelvis with contrast: A 3.6 cm complex right renal mass with 8 mm enhancing wall and low-density center is seen, most consistent with abscess. Please see full dictation for additional detail.
03/07/2024 CT abdomen/pelvis: Evaluation is limited by lack of IV contrast. A punctate 2 mm calculus at the right ureterovesicular junction with associated mild right hydroureteronephrosis.
[2024-03-11 12:10] VITALS: BP 119/68
[2024-03-11 15:26] VITALS: BP 108/68
--- NOTE | 2024-03-11 16:45 | CM ---
Chart reviewed
ID following
IV antibiotics/Cx pending
Plan - TBD - CM to follow for needs
[2024-03-11] MEDS: LOVENOX 40 MG SC (17:20)
[2024-03-11 19:30] VITALS: BP 114/67
[2024-03-11] MEDS: ANESTHETIC LOZENGE 1 LOZENGE PO (21:00)
[2024-03-11] MEDS: BENADRYL 25 MG PO (21:55)
[2024-03-11] MEDS: SENOKOT-S 1 TABLET PO (21:57)
--- NOTE | 2024-03-11 22:00 | PTCARENOTE ---
pt has itchy red rash covering back. pt states she thinks it started earlier this afternoon, Covering ERINN Rowe made aware, at bedside to assess pt. PO Benadryl ordered and given.
[2024-03-11 23:15] VITALS: BP 135/76
[2024-03-12] MEDS: ZOSYN 50 IV ×2 (02:40→08:49)
[2024-03-12 03:25] VITALS: BP 139/83
[2024-03-12 08:36] VITALS: BP 136/83
[2024-03-12] MEDS: TESSALON PERLES 200 MG PO ×3 (08:48→21:08)
[2024-03-12] MEDS: FLOMAX 0.4 MG PO (08:48)
[2024-03-12] MEDS: MUCINEX 600 MG PO ×2 (08:48→21:03)
--- NOTE | 2024-03-12 09:54 | CM ---
Reviewed the chart notes and spoke with the patient at the bedside. Continues with IV abx. Fevers continue. CM continues to be available to patient/family and is monitoring medical plan for needs at discharge.
Plan: Discharge plans will depend on the patient's progress. Hopefully home with no needs.
[2024-03-12 11:42] VITALS: BP 126/78
[2024-03-12] MEDS: BENADRYL 25 MG PO ×2 (11:49→21:16)
[2024-03-12 12:17] LABS: COVID-19 Antigen Negative (Negative)
--- NOTE | 2024-03-12 12:43 | W.PN.HOSP.TC ---
Today's Communication/Plan
-
Patient still running fevers
Repeat COVID-negative
Labs tomorrow
We can probably narrow antibiotics
Bld Cx neg
Assessment / Plan
Assessment / Plan
68-year-old female with right flank pain
CT A/P: Punctate 2 mm calculus at the right ureterovesical junction with associated mild right hydroureteronephrosis.
CVS: S1-S2 normal
Chest: Few rales right base
Abdomen: Soft, NT / Bowel sounds present
Extremities: No edema, normal pulses
CT A/P-There is a 3.6 cm complex right renal mass with 8 mm enhancing wall and low-density center which measures higher than cyst attenuation. This mass is most consistent with abscess. Complex cyst is included in the differential diagnosis
# Still running fevers? Viral
# Cough with rales- CXR without any pneumonia
Continue IS and AB should also cover if she has aspiration pneumonitis
Sputum CX if possible
Mucinex and Tesslon
Repeat COVID test negative
#Sepsis due to acute UTI due to R ureterolithiasis:
-s/p cystoscopy, R ureteroscopy, R ureteral stent placement on admission-no stone-probably passed
-Repeat Ct with 3 cm collection-IR placed percutaneous drainage. E. coli growing but pansensitive. Probably we can narrow antibiotics
-Changed AB to Zosyn
-Blood CX done prior to Starting Zosyn negative.
-follow UCx-sparse growth
-Leukocytosis better
-Pyridium for Dysuria
-Stent with string removed 03/10/24
-ID eval appreciated
# Hyponatremia, resolved
# Migraines
# Traumatic brain injury
# Sleep apnea-uses mouthguard
# Hearing impairment
# PTSD
#FULL
#DVT Prophylaxis- SC Lovenox
D/W RN
Offered to talk to family.
She doesn't want me to talk to family.
Anticipated Discharge: > 48 hours
Subjective/Interval History
-
Date of Service: March 12, 2024
Objective Data
-
Vital Signs:
Vital Signs
Temp Pulse Resp BP Pulse Ox
100.2 F 94 20 126/78 95
03/12/24 11:42 03/12/24 11:42 03/12/24 11:42 03/12/24 11:42 03/12/24 11:42
I&O
03/11/24 03/12/24 03/13/24
06:59 06:59 06:59
Intake Total 2219
Output Total
Balance 2209
--- NOTE | 2024-03-12 13:21 | W.PN.ID1 ---
Date of Service
Date of Service: March 12, 2024
Today's Communication
Continue abx. Transition to oral cipro
Assessment / Plan
Right renal abscess 2*pansensitive E. coli
Complicated urinary tract infection
Nephrolithiasis
Fever
Leukocytosis
Recommendations:
Patient s/p aspiration/drainage of right renal collection. 8 cc of bloody purulent fluid recovered per report.
-Cultures with pansensitive E. coli
Etiology of ongoing fever not clear, but may be secondary to infection (despite appropriate antibiotics) or possible drug fever.
Transition to oral ciprofloxacin 500 mg twice daily
Follow white count and temperature curve.
����������������������������������������������������������
Chief Complaint
-: UTI
Subjective / Review of Systems
Patient seen and examined. Reports intermittent fevers, along with chills. Also reports cough, but without significant sputum production. Little back/flank pain noted. No dysuria
Vital Signs / Physical Exam
Vital Signs
Vital Signs
Temp Pulse Resp BP Pulse Ox
100.2 F 94 20 126/78 95
03/12/24 11:42 03/12/24 11:42 03/12/24 11:42 03/12/24 11:42 03/12/24 11:42
Physical Exam
Constitutional: No Acute Distress, Comfortable and Non-toxic
Eyes: Sclera Anicteric
Cardiovascular: Regular Rate and S1/S2; Negative S3/S4
Pulmonary: Clear and Non Labored
Gastrointestinal: Soft, Non Tender and Non Distended
Genito-Urinary: Other (Right-sided BRAYDON to abscess. Bloody fluid in bulb.)
Extremities: Negative Edema, Cyanosis or Erythema
Neurological: Awake and Alert
Psychological: Calm
Objective Data
Lab Data
Lab Results
03/11/24 04:58
03/11/24 04:58
PT 13.4 Sec (11.4-14.6) 03/10/24 15:00
INR 0.99 03/10/24 15:00
Estimated Creat Clear 74 ml/min 03/11/24 04:58
Lactic Acid 1.1 mmol/L (0.7-2.0) 03/07/24 18:28
Total Bilirubin 0.6 mg/dl (0.2-1.3) 03/07/24 18:28
AST 21 U/L (14-36) 03/07/24 18:28
ALT 17 U/L (0-35) 03/07/24 18:28
Alkaline Phosphatase 81 U/L (38-126) 03/07/24 18:
Most recent labs reviewed.
Micro Results:
03/10/24 12:31 Blood Culture - Preliminary
Blood/Venous No Growth in 48 hours- Final report to follow
03/10/24 11:41 Blood Culture - Preliminary
Blood/Venous No Growth in 48 hours- Final report to follow
03/10/24 16:51 Wound Culture - Final
Abscess Escherichia coli
Gram Stain - Final
03/07/24 18:31 Urine Culture - Final
Urine No Significant Growth
03/09/24 06:12 Influenza Types A & B (JEFRY) - Final
Nasal Swab Negative for Influenza A & B, NAAT
Negative results must be combined with clinical observations
and patient history.
Nucleic Acid Amplification test (NAAT)performed on the
[employer] platform.
Wound/abscess/other Cult Final 03/10/2024
Many Escherichia coli
Organism 1 Escherichia coli
1. Escherichia coli
M.I.C. RX
--------- ---
Amoxicillin/Potas. Clavulanate <=8/4 S
Ampicillin <=8 S
Ampicillin/Sulbactam <=4/2 S
Aztreonam <=4 S
Cefazolin <=2 S
Ertapenem <=0.5 S
Ciprofloxacin <=0.25 S
Gentamicin <=2 S
Meropenem <=1 S
Piperacillin/Tazobactam <=8 S
Tetracycline <=4 S
Tobramycin <=2 S
Trimethoprim/Sulfamethoxazole <=2/38 S
Imaging:
03/10/2024 CT abdomen/pelvis with contrast: A 3.6 cm complex right renal mass with 8 mm enhancing wall and low-density center is seen, most consistent with abscess. Please see full dictation for additional detail.
03/07/2024 CT abdomen/pelvis: Evaluation is limited by lack of IV contrast. A punctate 2 mm calculus at the right ureterovesicular junction with associated mild right hydroureteronephrosis.
Care Review
Plan reviewed with: Physician (Hospitalist)
--- NOTE | 2024-03-12 15:05 | W.PN.URO.CBU ---
Today's Communication / Plan
-
Antibiotics per ID
Maintain abscess drain
Assessment / Plan
-
68F, remote history of kidney stones and stone procedures with sepsis and 2mm R distal ureteral stone
Febrile despite several days of antibiotics for suspected UTI
s/p OR 03/07 for R ureteroscopy showing no stone present (likely passed), ureteral stent placement
Stent removed at bedside 03/10
CT showed R renal abscess and now s/p IR drainage of purulent fluid 03/10
- Abscess drain to bulb suction
- Continue antibiotic for E coli in abscess culture, abx course per ID
- Persistent fevers may be persistent renal infection - not that atypical to have fever 2-3 days after source control in kidney infection
- Possible drain study/removal prior to discharge depending on timing
Diagnosis
-
Date of Service: March 12, 2024
-
Patient Diagnosis:
Sepsis
R ureteral stone
R renal abscess
Post Op Day: s/p R ureteroscopy, R ureteral stent placement 03/07
s/p IR drainage of R renal abscess 03/10
Subjective
-
still feeling fatigued with fevers
Objective
-
Vital Signs
Temp Pulse Resp BP Pulse Ox
100.2 F 94 20 126/78 95
03/12/24 11:42 03/12/24 11:42 03/12/24 11:42 03/12/24 11:42 03/12/24 11:42
Intake and Output
03/11/24 03/12/24 03/13/24
06:59 06:59 06:59
Intake Total 2219 / 2220
Output Total
Balance 2210 / 2210
Intake:
Oral fluids 1919 / 1919
IV piggybacks 300 / 300
Output:
Drain Output (Total)
Right Back Jesse-Cook Placed
in IR
Other:
Number of approximated MODERATE 3 2
amounts of urine
Laboratory Results
03/11/24 04:58
03/11/24 04:58
Physical Exam
-
General - well developed, well nourished, no acute distress
Chest - clear bilaterally
Abdomen - soft, non-tender
Drain in place, serous/clot drainage
Not as purulent
[2024-03-12 15:16] VITALS: BP 120/73
[2024-03-12] MEDS: TYLENOL 650 MG PO (15:19)
[2024-03-12 16:29] LABS: Vitamin D, 25-OH*** 51.9 ng/mL (30-80)
[2024-03-12] MEDS: LOVENOX 40 MG SC (17:31)
[2024-03-12 19:35] VITALS: BP 107/82
[2024-03-12] MEDS: CIPRO 500 MG PO (21:03)
[2024-03-12 23:26] VITALS: BP 119/70
[2024-03-13] MEDS: ANESTHETIC LOZENGE 1 LOZENGE PO ×2 (04:32→19:36)
[2024-03-13 06:17] LABS: Hematocrit 33.5 % (37.0-47.0); Hemoglobin 11.8 g/dL (12.0-16.0); Mean Corp Hgb Conc. 35.2 g/dL (33.0-37.0); Mean Corpuscular Hgb 30.4 pg (27.0-31.0); Mean Corpuscular Volume 86.3 fL (81.0-99.0); Mean Platelet Volume 9.3 fL (7.4-10.4); Platelet Count 247 10^3/uL (130-400); Red Blood Cell Count 3.88 10^6/uL (4.20-5.40); Red Cell Dist. Width 12.3 % (11.5-14.5)
[2024-03-13 06:48] LABS: Blood Urea Nitrogen 6 mg/dl (7-17); Calcium 8.1 mg/dl (8.4-10.2); Carbon Dioxide 27 mmol/L (22-30); Chloride 101 mmol/L (98-107); Estimated Creatinine Clearance 74 ml/min; Glucose 83 mg/dl (70-99); Potassium 3.8 mmol/L (3.5-5.1); Sodium 137 mmol/L (135-145); eGFR > 60.00
[2024-03-13 08:02] VITALS: BP 127/81
[2024-03-13] MEDS: FLOMAX 0.4 MG PO (08:30)
[2024-03-13] MEDS: MUCINEX 600 MG PO ×2 (08:30→19:36)
[2024-03-13] MEDS: CIPRO 500 MG PO ×2 (08:30→19:36)
--- NOTE | 2024-03-13 09:14 | W.PN.ID1 ---
Date of Service
Date of Service: March 13, 2024
Today's Communication
Continue po cipro.
Monitor temps.
Assessment / Plan
Right renal abscess 2*pansensitive E. coli
Complicated urinary tract infection
Nephrolithiasis
Fever
Leukocytosis
Recommendations:
Patient s/p aspiration/drainage of right renal collection (3.6 cm). 8 cc of bloody purulent fluid recovered per report.
-Cultures with pansensitive E. coli
Etiology of ongoing fever not clear, but may be secondary to infection (despite appropriate antibiotics) or possible drug fever as per Dr. Miller; Zosyn changed to cipro.
Repeat COVID/Flu negative.
Blood cx's neg
CXR Tiny left pleural effusion
Fever from pyelonephritis tends to persists longer and lags with clinical improvement.
Follow temps.
Continue oral ciprofloxacin 500 mg twice daily (d5 effective abx) through 03/22/24.
����������������������������������������������������������
Chief Complaint
-: UTI
Subjective / Review of Systems
Tolerating cipro.
BRAYDON drain minimal output.
Vital Signs / Physical Exam
Vital Signs
Vital Signs
Temp Pulse Resp BP Pulse Ox
99.5 F 100 16 127/81 94
03/13/24 08:02 03/13/24 08:02 03/13/24 08:02 03/13/24 08:02 03/13/24 08:02
Selected Entries
03/12/24
15:16
Temp 101.3 F H
Physical Exam
Constitutional: No Acute Distress and Comfortable
Head: Other (No frontal or maxillary sinus tenderness)
Pulmonary: Rales (left base crackles)
Gastrointestinal: Soft, Non Tender and Normal Bowel Sounds
Genito-Urinary: Other (L BRAYDON drain scant clear serosanguineous fluid); Negative CVA Tenderness
Extremities: Negative Edema
Neurological: AO x 3
Objective Data
Lab Data
Lab Results
03/13/24 04:56
03/13/24 04:56
PT 13.4 Sec (11.4-14.6) 03/10/24 15:00
INR 0.99 03/10/24 15:00
Estimated Creat Clear 74 ml/min 03/13/24 04:56
Lactic Acid 1.1 mmol/L (0.7-2.0) 03/07/24 18:28
Total Bilirubin 0.6 mg/dl (0.2-1.3) 03/07/24 18:28
AST 21 U/L (14-36) 03/07/24 18:28
ALT 17 U/L (0-35) 03/07/24 18:28
Alkaline Phosphatase 81 U/L (38-126) 03/07/24 18:28
Most recent labs reviewed.
Micro Results:
03/10/24 12:31 Blood Culture - Preliminary
Blood/Venous No Growth in 48 hours- Final report to follow
03/10/24 11:41 Blood Culture - Preliminary
Blood/Venous No Growth in 48 hours- Final report to follow
03/10/24 16:51 Wound Culture - Final
Abscess Escherichia coli
Gram Stain - Final
03/07/24 18:31 Urine Culture - Final
Urine No Significant Growth
03/09/24 06:12 Influenza Types A & B (JEFRY) - Final
Nasal Swab Negative for Influenza A & B, NAAT
Negative results must be combined with clinical observations
and patient history.
Nucleic Acid Amplification test (NAAT)performed on the
[employer] platform.
Wound/abscess/other Cult Final 03/10/2024
Many Escherichia coli
Organism 1 Escherichia coli
1. Escherichia coli
M.I.C. RX
--------- ---
Amoxicillin/Potas. Clavulanate <=8/4 S
Ampicillin <=8 S
Ampicillin/Sulbactam <=4/2 S
Aztreonam <=4 S
Cefazolin <=2 S
Ertapenem <=0.5 S
Ciprofloxacin <=0.25 S
Gentamicin <=2 S
Meropenem <=1 S
Piperacillin/Tazobactam <=8 S
Tetracycline <=4 S
Tobramycin <=2 S
Trimethoprim/Sulfamethoxazole <=2/38 S
Imaging:
03/10/2024 CT abdomen/pelvis with contrast: A 3.6 cm complex right renal mass with 8 mm enhancing wall and low-density center is seen, most consistent with abscess. Please see full dictation for additional detail.
03/07/2024 CT abdomen/pelvis: Evaluation is limited by lack of IV contrast. A punctate 2 mm calculus at the right ureterovesicular junction with associated mild right hydroureteronephrosis.
--- NOTE | 2024-03-13 11:34 | W.PN.HOSP.TC ---
Today's Communication/Plan
-
I have reached out to urology and interventional radiology for discharge planning purposes
Patient would like to have a drain removed if possible prior to discharge
Assessment / Plan
Assessment / Plan
68-year-old female with right flank pain
CT A/P: Punctate 2 mm calculus at the right ureterovesical junction with associated mild right hydroureteronephrosis.
CVS: S1-S2 normal
Chest: Mostly clear today
Abdomen: Soft, NT / Bowel sounds present
Extremities: No edema, normal pulses
CT A/P-There is a 3.6 cm complex right renal mass with 8 mm enhancing wall and low-density center which measures higher than cyst attenuation. This mass is most consistent with abscess. Complex cyst is included in the differential diagnosis
# Fevers resolved
# Cough with rales- CXR without any pneumonia
Continue IS and AB should also cover if she has aspiration pneumonitis/bronchitis
Symptomatically she is better even though cough is still present
Mucinex and Tesslon
Repeat COVID test negative
#Sepsis due to acute UTI due to R ureterolithiasis:
-s/p cystoscopy, R ureteroscopy, R ureteral stent placement on admission-no stone-probably passed
-Repeat Ct with 3 cm collection-IR placed percutaneous drainage. E. coli -pansensitive.
-Ceftriaxone>Zosyn> ciprofloxacin 500 twice daily
-Blood C
-UCx-sparse growth
-Leukocytosis resolved
-Stent with string removed 03/10/24
-ID eval appreciated
# Hyponatremia, resolved
# Migraines
# Traumatic brain injury
# Sleep apnea-uses mouthguard
# Hearing impairment
# PTSD
# FULL
# DVT Prophylaxis- SC Lovenox
D/W RN
D/W Urology and [facility]
Offered to talk to family.
She doesn't want me to talk to family.
Anticipated Discharge: Within 24 hours
Subjective/Interval History
-
Date of Service: March 13, 2024
Objective Data
-
Labs:
Laboratory Results
03/13/24
04:56
WBC 6.0
Hgb 11.8 L
Hct 33.5 L
Plt Count 247
Sodium 137
Potassium 3.8
Chloride 101
Carbon Dioxide 27
BUN 6 L
Creatinine 0.5 L
Glucose 83
Calcium 8.1 L
Vital Signs:
Vital Signs
Temp Pulse Resp BP Pulse Ox
99.5 F 100 16 127/81 94
03/13/24 08:02 03/13/24 08:02 03/13/24 08:02 03/13/24 08:02 03/13/24 08:02
I&O
03/12/24 03/13/24 03/14/24
06:59 06:59 06:59
Intake Total 2220 / 2220 170 / 170
Output Total
Balance 2210 / 2210 160 / 160
--- NOTE | 2024-03-13 11:44 | CM ---
CM following re: discharge planning.
Reviewed pt's chart, met with pt.
Pt is s/p OR 03/07 for R ureteroscopy showing no stone present (likely passed), ureteral stent placement. Pt expressed to me her desire to have drain removed and to go home.
IMM reviewed placed on chart, pt has a copy.
Pt described herself as independent in all areas [employer] and pt stated her friend will transport her home or she will take an Uber.
D/C plan: home with anticipated no needs.
CM will follow with discharger plan updates as needed.
[2024-03-13 13:39] VITALS: BP 115/69; BP_SYST 102
[2024-03-13] MEDS: TYLENOL 650 MG PO (14:22)
--- NOTE | 2024-03-13 15:45 | W.PN.URO.CBU ---
Today's Communication / Plan
-
Continue antibiotics
Stable for discharge
Assessment / Plan
-
68F, remote history of kidney stones and stone procedures with sepsis and 2mm R distal ureteral stone
Febrile despite several days of antibiotics for suspected UTI
s/p OR 03/07 for R ureteroscopy showing no stone present (likely passed), ureteral stent placement
Stent removed at bedside 03/10
CT showed R renal abscess and now s/p IR drainage of purulent fluid 03/10
Drain study and removal completed 03/13
- Stable for discharge from standpoint
- Continue antibiotics - agree with extended course through 03/22 per ID
- Follow up with me in 2-4 weeks
Diagnosis
-
Date of Service: March 13, 2024
-
Patient Diagnosis:
Post Op Day:
Patient Diagnosis:
Sepsis
R ureteral stone
R renal abscess
Post Op Day: s/p R ureteroscopy, R ureteral stent placement 03/07
s/p IR drainage of R renal abscess 03/10
Subjective
-
Feeling better
Afebrile today
Objective
-
Vital Signs
Temp Pulse Resp BP Pulse Ox
98.0 F 102 18 115/69 96
03/13/24 13:39 03/13/24 13:39 03/13/24 13:39 03/13/24 13:39 03/13/24 13:39
Intake and Output
03/12/24 03/13/24 03/14/24
06:59 06:59 06:59
Intake Total 2220 / 2220 170 / 170
Output Total
Balance 2210 / 2210 160 / 160
Intake:
Oral fluids 1920 / 1920 120 / 120
IV piggybacks 300 / 300 50 / 50
Output:
Drain Output (Total)
Right Back Jesse-Cook Placed
in IR
Other:
Number of approximated MODERATE 2 3
amounts of urine
Laboratory Results
03/13/24 04:56
03/13/24 04:56
Physical Exam
-
General - well developed, well nourished, no acute distress
Chest - unlabored, prod. cough
Abdomen - soft, non-tender, drain removed
[2024-03-13 15:51] VITALS: BP 117/70
[2024-03-13] MEDS: LOVENOX 40 MG SC (17:45)
[2024-03-13 23:15] VITALS: BP 98/70
[2024-03-14 07:35] VITALS: BP 93/65
[2024-03-14] MEDS: MUCINEX 600 MG PO (08:31)
[2024-03-14] MEDS: CIPRO 500 MG PO (08:31)
[2024-03-14] MEDS: FLOMAX 0.4 MG PO (08:31)
--- NOTE | 2024-03-14 10:18 | W.PN.HOSP.TC ---
Addendum entered and electronically signed by Homar Vyas MD 03/14/24 10:45:
Discussed with Dr. Ortiz. No need of Flomax at discharge.
Original Note:
Today's Communication/Plan
-
Discharge
Assessment / Plan
Assessment / Plan
68-year-old female with right flank pain
CT A/P: Punctate 2 mm calculus at the right ureterovesical junction with associated mild right hydroureteronephrosis.
CVS: S1-S2 normal
Chest: Mostly clear today
Abdomen: Soft, NT / Bowel sounds present, Drain out
Extremities: No edema, normal pulses
CT A/P-There is a 3.6 cm complex right renal mass with 8 mm enhancing wall and low-density center which measures higher than cyst attenuation. This mass is most consistent with abscess. Complex cyst is included in the differential diagnosis
# Fevers resolved
# Cough with rales- CXR without any pneumonia
Continue IS and AB should also cover if she has aspiration pneumonitis/bronchitis
Symptomatically she is better even though cough is still present
Mucinex and Tesslon
Repeat COVID test negative
#Sepsis due to acute UTI due to R ureterolithiasis:
-s/p cystoscopy, R ureteroscopy, R ureteral stent placement on admission-no stone-probably passed
-Repeat Ct with 3 cm collection-IR placed percutaneous drainage. E. coli -pansensitive.
-Ceftriaxone>Zosyn> ciprofloxacin 500 twice daily
-Blood C
-UCx-sparse growth
-Leukocytosis resolved
-Stent with string removed 03/10/24
-Drain removed 03/13/24 by IR[facility]
-ID eval appreciated
# Hyponatremia, resolved
# Migraines
# Traumatic brain injury
# Sleep apnea-uses mouthguard
# Hearing impairment
# PTSD
# FULL
# DVT Prophylaxis- SC Lovenox
D/W RN
More than 30 minutes spent in discharge including
Final examination of the patient
Summarizing hospital stay
Instructions for continuing care to all relevant caregivers
Preparation of discharge records, prescriptions, and referral forms
Total time spent (in minutes): 32 min
Anticipated Discharge: Today
Subjective/Interval History
-
Date of Service: March 14, 2024
Objective Data
-
Vital Signs:
Vital Signs
Temp Pulse Resp BP Pulse Ox
98.6 F 111 16 93/65 96
03/14/24 07:35 03/14/24 07:35 03/14/24 07:35 03/14/24 07:35 03/14/24 07:35
I&O
03/13/24 03/14/24 03/15/24
06:59 06:59 06:59
Intake Total 170 / 170 2119
Output Total
Balance 160 / 160 2119
--- NOTE | 2024-03-14 10:44 | W.DS.TRANS ---
Addendum entered and electronically signed by Homar Vyas MD 03/15/24 09:35:
Dictation- [id number]
Original Note:
DC Summary - [employer]
-
Discharge Instructions:
Discharge Diagnosis/Procedures Pyelonephritis
Cough
Right cystoscopy, ureteroscopy, ureteral stent
placement and removal
3 cm right renal abscess status post
percutaneous drainage
Hyponatremia
Sleep apnea
PTSD
Diet As tolerated
Activity As tolerated
Driving Restrictions As prior to admission
Instructions:
Stand-Alone Forms:
Changes to Home Medications: Yes
Discharge Medications:
DC Medications w/original date entered in [facility]
benzonatate 100 mg capsule 200 mg (2 x 100 mg) PO TIDPRN PRN cough #20 caps 03/13/24
ciprofloxacin HCl 500 mg tablet 500 mg PO BID Urinary issue #19 tabs 03/13/24
guaifenesin 600 mg tablet, extended release 12 hr 600 mg PO Q12 Cough #0 tabs 03/13/24
phenazopyridine 200 mg tablet 200 mg PO Q6HPRN PRN URINARY PAIN #20 tabs 03/13/24
Home Medication Changes
all above new
Pending Results: No
[2024-03-14 11:13] VITALS: BP 90/65
--- NOTE | 2024-03-14 11:21 | CM ---
For discharge today
Has ride home
Given IMM
Plan - home no needs
== END 2024-03-14 12:00 | disposition home or self-care (01) | DRG 853 ==
LOC: 2 SOUTH 21:56
PROVIDERS: Emergency Medicine; Radiology Vascular & Interventional Radiology; Registered Nurse; ADMITTING PHYSICIAN Hospitalist; ATTENDING PHYSICIAN Hospitalist; CONSULT PHYSICIAN Urology; EMERGENCY PHYSICIAN Emergency Medicine; FAMILY PHYSICIAN Nurse Practitioner; OTHER PHYSICIAN Internal Medicine Infectious Disease
PROC: 0T768DZ Dilation of Right Ureter with Intraluminal Device, Via Natural or Artificial Opening Endoscopic (ICD-10-PCS; 2024-03-07)
PROC: 0T9030Z Drainage of Right Kidney with Drainage Device, Percutaneous Approach (ICD-10-PCS; 2024-03-10)
DX: A41.9 Sepsis, unspecified organism (principal); N15.1 Renal and perinephric abscess; N13.6 Pyonephrosis; E87.1 Hypo-osmolality and hyponatremia; F43.10 Post-traumatic stress disorder, unspecified; B34.9 Viral infection, unspecified; G47.30 Sleep apnea, unspecified; N35.92 Unspecified urethral stricture, female; Z87.442 Personal history of urinary calculi; Z87.891 Personal history of nicotine dependence
CPT/HCPCS: 49405; 49424; 71046; 74018; 74176; 74178; 76000; 76080; 80048; 80053; 81003; 81015; 82306; 83605; 85025; 85027; 85610; 87040; 87070; 87077; 87086; 87186; 87205; 87502; 87811; 93005; 96361; 96374; 96375; 99152; 99153; 99285; C1729; C1769; C2617; Q9967

== ENCOUNTER → 2024-04-17 12:16 | Outpatient (REF) | payer MEDICARE, OTHER, SELFPAY | LOC: HWRAD 12:16 | PROVIDERS: ATTENDING PHYSICIAN Urology; FAMILY PHYSICIAN Nurse Practitioner | DX: N15.1 Renal and perinephric abscess (principal); Z87.442 Personal history of urinary calculi | CPT/HCPCS: 76775 ==